=== PATIENT | female | born 1945 ===

== ENCOUNTER 2016-08-17 15:09 | Inpatient (IN) | payer MEDICARE ==
--- NOTE | 2016-08-17 15:35 | ED Physician Chart ---
Chief Complaint/HPI - Patient Information Date Seen:: 08/17/16 Time Seen:: 15:20 Chief Complaint:: hearing voices History of Present Illness:: has been hearing voices for the last few days telling her that the world is coming to an end. Doesn't want to go to sleep because doesn't want to miss the event. Is also hearing a trumpet sound. Historian:: Patient Review:: Nurse's Note Reviewed Review of Systems - Review of Systems General/Constitutional: No fever, No chills Skin: No skin lesions Head: No headache Eyes: No loss of vision ENT: No earache Neck: No neck pain Cardio Vascular: No chest pain Pulmonary: Wheezing GI: No nausea, No vomiting Musculoskeletal: No bone or joint pain Endocrine: No polyuria, No polydipsia Hematopoietic: No bruising, No lymphadenopathy Allergic/Immuno: No urticaria Neurological: No syncope, No focal symptoms Past Medical History - Past Medical History Past Medical History: Arthritis, Other (psychosis; depression; anxiety; bipolar ; chronic pain; DJD) Family History: Heart disease, Diabetes Melitus, HTN Social History: Smoker, Care Facility Surgical History: other Medication: Reviewed Family Medical History - Family Member Father History Unknown: Yes Physical Exam - Physical Examination General/Constitutional: Well-developed, well-nourished, Alert Head: Atraumatic Eyes: Lids, conjuctiva normal, PERRL Skin: Nl inspection, No rash, No skin lesions, No ecchymosis ENMT: External ears, nose nl, TM canals nl, Nasal exam nl, Oropharynx nl, Tonsils nl Other ENMT comments:: edentulous with upper dentures Neck: No nuchal rigidity Respiratory: Nl effort/Exclusion Other Respiratory comments:: diffuse prolonged expirations and expiratory wheezing Cardio Vascular: RRR GI: No tenderness/rebounding/guarding, No organomegaly : No CVA tenderness Extremities: No tenderness or effusion, Full ROM Neuro/Psych: Alert/oriented Misc: Normal back Labs/Radiology/EKG Results - Lab Results Results: Laboratory Results - last 24 hr 08/17/16 08/17/16 08/17/16 15:39 15:39 15:39 WBC 6.7 RBC 5.17 Hgb 15.5 Hct 45.6 H MCV 88.2 MCH 29.9 MCHC Differential 33.9 RDW 12.8 Plt Count 197 MPV 8.0 Neutrophils % 70.2 Lymphocytes % 22.9 Monocytes % 4.4 Eosinophils % 2.4 Basophils % 0.1 Sodium 131 L Potassium 4.0 Chloride 97 L Carbon Dioxide 28.9 Anion Gap 9.1 BUN 12 Creatinine 0.9 Est GFR ( Amer) TNP Est GFR (Non-Af Amer) TNP BUN/Creatinine Ratio 13.3 Glucose 87 Calcium 9.3 Total Bilirubin 0.3 AST 11 L ALT 8 Alkaline Phosphatase 85 Total Protein 6.4 Albumin 3.9 Globulin 2.5 Albumin/Globulin Ratio 1.6 TSH 1.05 - Radiology Results Results: CXR: calcification of aortic arch; no infiltrate; no cardiomegaly - EKG Interpretations Rhythm: NSR [place]: LAD Rate: 63 ED Septic Shock - . Is Septic Shock (SBP<90, OR Lactate>4 mmol\L) present?: No Reassessment (Disposition) - Reassessment Reassessment Condition:: Unchanged - Diagnosis Diagnosis:: COPD; auditory hallucinations - Patient Disposition Admitted to:: [facility] Admitting Medical Physician:: Ari Carter Admitting Psych Physician:: Kelli Osborne
[2016-08-17 15:45] LABS: % BASOPHILS 0.1 % (0.0-2.0); % EOSINOPHILS 2.4 % (0.0-5.0); % LYMPHOCYTES 22.9 % (20.0-50.0); % MONOCYTES 4.4 % (2.0-10.0); % NEUTROPHILS 70.2 % (40.0-80.0); HEMATOCRIT 45.6 % (35.0-45.0); HEMOGLOBIN 15.5 gm/dL (11.7-16.1); MEAN CELL VOLUME 88.2 fl (81-100); MEAN CORPUSCULAR HEMOGLOBIN 29.9 pg (27.0-31.0); MEAN CORPUSCULAR HGB CONC 33.9 pg (28.0-36.0); NEUTROPHILE ABSOLUTE 4.7 Th/cmm (1.8-8.0); PLATELET COUNT 197 Th/cmm (150-400); RED BLOOD COUNT 5.17 Mil/cmm (3.80-5.20); RED CELL DISTRIBUTION WIDTH 12.8 % (11.5-20.0); WHITE BLOOD COUNT 6.7 Th/cmm (4.8-10.8)
--- NOTE | 2016-08-17 16:01 | Diagnostic Imaging Report ---
Portable chest x-ray HISTORY: Shortness of breath, COPD The heart size is generous. No acute focal pulmonary processes. No hilar or mediastinal abnormality is. Electrode wires project over the thoracic spine. IMPRESSION: 1. No acute pulmonary processes
[2016-08-17 16:04] LABS: ALB/GLOB RATIO 1.6 (1.0-1.8); ALKALINE PHOSPHATASE 85 U/L (34-104); ANION GAP 9.1 (7.0-16.0); BILIRUBIN,TOTAL 0.3 mg/dL (0.3-1.0); BUN - UREA NITROGEN 12 mg/dL (7-25); BUN/CREATININE RATIO 13.3; CALCIUM SERUM 9.3 mg/dL (8.6-10.3); CARBON DIOXIDE 28.9 mEq/L (21.0-31.0); CHLORIDE 97 mEq/L (98-107); CREATININE - SERUM 0.9 mg/dL (0.6-1.2); GLUCOSE 87 mg/dL (70-105); SGOT 11 U/L (13-39); SGPT/ALT 8 U/L (7-52); SODIUM SERUM 131 mEq/L (136-145)
[2016-08-17 18:21] LABS: URINE BILIRUBIN NEGATIVE (NEGATIVE); URINE COLOR PALE YELLOW; URINE GLUCOSE (UA) NEGATIVE (NEGATIVE)
[2016-08-17 18:22] LABS: URINE BLOOD TRACE (NEGATIVE); URINE KETONE NEGATIVE (NEGATIVE); URINE PROTEIN NEGATIVE (NEGATIVE); URINE UROBILINOGEN 0.2 E.U./dL (0.2 - 1.0)
[2016-08-17 18:23] LABS: URINE BACTERIA OCCASIONAL /hpf (NONE SEEN); URINE EPITHELIAL CELLS RARE /lpf (FEW); URINE RBC 0-2 /hpf (0-5); URINE WBC 0-2 /hpf (0-5)
[2016-08-17 18:47] VITALS: BP 183/100
[2016-08-17] MEDS ORDERED: MORPHINE 30 MG PO PRN (20:17)
[2016-08-17] MEDS ORDERED: CODEINE PO PRN (20:17)
[2016-08-17] MEDS ORDERED: Hydrocodone/APAP 10 mg/325 mg Tab PO PRN (20:17)
[2016-08-17] MEDS ORDERED: Non-Formulary Item 1 EA (Morphine Sulfate [Morphine Sulfate] 30 MG) PO PRN (20:17)
[2016-08-17] MEDS ORDERED: PROMETHAZINE PO PRN (20:17)
[2016-08-17] MEDS ORDERED: [UNRECOGNIZED DRUG - OTHER] PO PRN (20:17)
[2016-08-17] MEDS ORDERED: PHENYLEPHRINE PO PRN (20:17)
[2016-08-17] MEDS ORDERED: Non-Formulary Item 1 EA (Lactulose [Lactulose] 20 GM) PO SCH (21:00)
[2016-08-17] MEDS ORDERED: ALPRAZOLAM 1 MG PO SCH (21:00)
[2016-08-17] MEDS ORDERED: Non-Formulary Item 1 EA (Trazodone Hcl [Trazodone Hcl] 200 MG) PO SCH (21:00)
[2016-08-17] MEDS ORDERED: Pneumococcal Vaccine 0.5 mL Vial IM ONE (22:13)
[2016-08-17] MEDS ORDERED: Influenza Vaccine 0.5 mL Syr IM ONE (22:13)
[2016-08-18] MEDS: Lactulose 10 Gm/15 mL 30mL UDC PO SCH ×3 (08:57→21:05)
[2016-08-18] MEDS: Pantoprazole 40 mg EC Tab PO SCH (08:58)
[2016-08-18] MEDS: Oxybutynin Chloride 5 mg ER Tab PO SCH (08:59)
[2016-08-18] MEDS ORDERED: DOXYCYCLINE HYCLATE 100 MG PO SCH (09:00)
[2016-08-18] MEDS ORDERED: Non-Formulary Item 1 EA (Atenolol [Atenolol] 50 MG) PO SCH (09:00)
[2016-08-18] MEDS ORDERED: Non-Formulary Item 1 EA (Lisinopril [Lisinopril] 30 MG) PO SCH (09:00)
[2016-08-18] MEDS ORDERED: Non-Formulary Item 1 EA (Omeprazole [Omeprazole] 40 MG) PO SCH (09:00)
[2016-08-18] MEDS ORDERED: ESTRADIOL 0.1 MG VG SCH (09:00)
[2016-08-18] MEDS: Lidocaine 5% Patch TD SCH (09:00)
--- NOTE | 2016-08-18 13:55 | History & Physical ---
IDENTIFYING INFORMATION: The patient is a 71-year-old female. CHIEF COMPLAINT: "I have been depressed." HISTORY OF PRESENT ILLNESS: The patient was referred because of delusions, paranoia, and depression. The patient reports that she has been depressed for the last month. She said she has so many stressors. She has a roommate that she does not trust. She reports that she does not want to harm herself or anybody. She denies any auditory or visual hallucination or paranoia. She reports sleeping ____. PAST PSYCHIATRIC HISTORY: The patient has long history of psychiatric treatment. She has long history of depression. She denies any prior suicide attempt. She has been on Abilify, lorazepam, trazodone and Ativan. MEDICAL HISTORY: Deferred to the medical doctors. ALLERGIES: SHE IS ALLERGIC TO STEROIDS. MEDICATIONS: She is on Effexor 150 mg daily, Abilify 5 mg daily, trazodone 200 mg at bedtime. FAMILY AND SOCIAL HISTORY: The patient reports she is . She has a master degree. 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 She has 2 children, a boy and girl. She said she has good relation with her family. No family psychiatric disorder. She reports she lives with a roommate. MENTAL STATUS EXAMINATION: The patient was appropriately dressed, appropriately groomed. Mood is depressed. Affect is sad. Thoughts are clear. Speech is coherent. She was unsure of the exact date. She denies any auditory or visual hallucination; however, she has been reported to be paranoid and delusional; however, when I talked to her, she was fine. She reports she was diagnosed with bipolar disorder. She reported no current intent to harm herself. She is not sleeping well. Appetite varies and she seems to have average intelligence. Her long and short term memory is intact. Insight and judgment are questionable. IMPRESSION: AXIS I: Bipolar disorder, depressed with delusion. MEDICAL DIAGNOSES: Deferred to the medical doctor. INITIAL TREATMENT PLAN: The patient will be continued on all her medication. I will be initiating Neurontin. She will continue her medication as needed and later we may have to try and see if we could get her off Xanax easily and maybe that will be better done as an outpatient, ____ long time. ESTIMATED LENGTH OF STAY: 3-7 days. DISCHARGE CRITERIA: Decreasing depression, delusion, after discharge outpatient. JOB# [id number]
[2016-08-18] MEDS: Albuterol Nebulizer 2.5mg/3mL HHN SCH ×2 (14:35→19:42)
[2016-08-18] MEDS: Ipratropium Neb 0.5 mg/2.5 mL UD HHN SCH ×2 (14:36→19:42)
--- NOTE | 2016-08-18 18:58 | History & Physical ---
PATIENT IDENTIFICATION: A 71-year-old female. REQUESTING PHYSICIAN: Dr. Osborne. HISTORY SOURCE: Talking to the patient and reviewing the chart. CHIEF COMPLAINT: "I'm okay." HISTORY OF PRESENT ILLNESS: This is a 71-year-old female with history of COPD, hypertension, DJD, chronic pain syndrome, brought in to the hospital at [facility] for evaluation and management of her psychiatric illness. Upon further questioning, the patient said that she is feeling very weak and she prefers to get her physical therapy. According to the patient, the patient needs a physical therapy. PAST MEDICAL HISTORY: Remarkable for: 1. COPD. 2. Hypertension. 3. DJD. 4. Chronic pain syndrome. MEDICATIONS AT HOME: The patient is taking multiple medications, which have been reviewed and appropriately reconciled. ALLERGIES: The patient is not allergic to medication. SOCIAL HISTORY: The patient lives in a [address] [place] [facility]. She has a history of smoking cigarette. No alcohol or drug use. FAMILY MEDICAL HISTORY: Remarkable for diabetes, hypertension, kidney disease, and liver disease as well. REVIEW OF SYSTEMS: The patient currently denies any headache, blurred vision, double vision, dysphagia, odynophagia, runny nose, stuffy nose, fever, chills, cough, chest pain, shortness of breath, palpitations, dizziness, nausea, vomiting, diarrhea, dysuria, hematuria, hematochezia, or melena. No history of any seizure or syncopal episode. No history of any weight loss or weight gain. PHYSICAL EXAMINATION: GENERAL: The patient is alert, awake, and oriented, lying in the bed without any acute distress. VITAL SIGNS: Temperature 97.8, pulse is , respiratory rate is 20, and blood pressure 148/90. SKIN: Warm to touch. HEENT: Normocephalic and atraumatic. Extraocular muscles are intact. Tongue was pink and coated. Upper and lower dentures noted. No oral lesions. NECK: Supple. No JVD. No hepatojugular reflux. No lymphadenopathy, thyromegaly, or carotid bruit. HEART: Both heart sounds are regular. No S3, no S4, no murmur. CHEST/LUNGS: Equal in expansion with expiratory wheezing. ABDOMEN: Soft. No guarding, no rigidity. Liver and spleen palpable. No palpable mass. EXTREMITIES: No edema. Diffuse osteoarthritic changes noted. NEUROLOGIC: Alert and awake, follows commands. Decreased lyons throughout the upper and lower extremity noted. AVAILABLE DIAGNOSTIC DATA: Performed in the Emergency Room has been reviewed and reconciled. CLINICAL IMPRESSION: 1. Chronic obstructive pulmonary disease. 2. Hypertension. 3. Degenerative joint disease. 4. Chronic pain syndrome. 5. Obesity. 6. Psychotic disorder. 7. Gastroesophageal reflux disease. 8. Urinary incontinence. 9. Debility. PLAN: 1. Psychotic evaluation and management deferred to psychiatrist. 2. Continue to provide nebulizer treatment, antihypertensive medications along with pain management with methadone and [place] for now. 3. The patient to have physical therapy and occupational therapy. Care plan has been reviewed and discussed with the staff. JOB# [id number]
[2016-08-18] MEDS: Budesonide 0.5 Mg/2 mL Ud HHN SCH (19:43)
[2016-08-19] MEDS: Albuterol Nebulizer 2.5mg/3mL HHN SCH ×4 (07:16→19:45)
[2016-08-19] MEDS: Ipratropium Neb 0.5 mg/2.5 mL UD HHN SCH ×4 (07:16→19:45)
[2016-08-19] MEDS: Budesonide 0.5 Mg/2 mL Ud HHN SCH ×2 (07:27→19:45)
[2016-08-19] MEDS: Lactulose 10 Gm/15 mL 30mL UDC PO SCH ×3 (08:38→21:09)
[2016-08-19] MEDS: Oxybutynin Chloride 5 mg ER Tab PO SCH (08:42)
[2016-08-19] MEDS: Pantoprazole 40 mg EC Tab PO SCH (08:42)
[2016-08-19] MEDS: Lidocaine 5% Patch TD SCH (08:46)
--- NOTE | 2016-08-20 00:57 | Progress Notes ---
Case discussed with staff of the patient. The patient is alert, able to express herself. Continues to be depressed, overwhelmed. She has been depressed for a month. She has so many stressors. She lives with somebody she does not trust. She continues to be easily overwhelmed. There is a long history of psychiatric treatment and depression. She has been compliant with the medication with no side effects, no sedation, no nausea, no extrapyramidal symptoms and she was restarted on her medications and I will make adjustment as we go along because I am not sure if she is going to comply with medication completely to make sure she does not have side effects and lab work showed serum sodium to be low and the rest within normal range. Urinalysis within normal range. CBC with high hemoglobin and high MCV and the repeated sodium level was within normal range. She has high hemoglobin. So far, no side effects with the medication. No nausea, no extrapyramidal symptoms. We will continue to work with the patient in group therapy, milieu therapy, adjust the medication as needed. JOB# [id number]
[2016-08-20] MEDS: Albuterol Nebulizer 2.5mg/3mL HHN SCH ×4 (07:00→19:46)
[2016-08-20] MEDS: Ipratropium Neb 0.5 mg/2.5 mL UD HHN SCH ×4 (07:00→19:46)
[2016-08-20] MEDS: Budesonide 0.5 Mg/2 mL Ud HHN SCH ×2 (07:25→19:47)
[2016-08-20] MEDS: Lactulose 10 Gm/15 mL 30mL UDC PO SCH ×3 (08:33→21:07)
[2016-08-20] MEDS: Oxybutynin Chloride 5 mg ER Tab PO SCH (08:35)
[2016-08-20] MEDS: Pantoprazole 40 mg EC Tab PO SCH (08:37)
[2016-08-20] MEDS: Lidocaine 5% Patch TD SCH (08:38)
[2016-08-20] MEDS: Albuterol Nebulizer 2.5mg/3mL HHN PRN (16:20)
--- NOTE | 2016-08-20 21:04 | Progress Notes ---
Case was discussed with staff of the patient, reviewed records. The patient has multiple somatic complaints. Continues to be depressed, easily overwhelmed. She continues to deal with many stressors. She continues to be somewhat paranoid towards her roommate with a long history of psychiatric treatment of depression. She has been sleeping better, eating better. She is compliant with the medication with no side effects, no sedation, no nausea, and no extrapyramidal symptoms, and she is on Abilify 5 mg daily and we will continue to work with the patient in group therapy, milieu therapy, and adjust the medication as needed. JOB# [id number]
[2016-08-21] MEDS: Budesonide 0.5 Mg/2 mL Ud HHN SCH ×2 (06:46→18:59)
[2016-08-21] MEDS: Ipratropium Neb 0.5 mg/2.5 mL UD HHN SCH ×4 (06:46→19:00)
[2016-08-21] MEDS: Albuterol Nebulizer 2.5mg/3mL HHN SCH ×4 (06:46→19:00)
[2016-08-21] MEDS: Oxybutynin Chloride 5 mg ER Tab PO SCH (09:12)
[2016-08-21] MEDS: Lidocaine 5% Patch TD SCH (09:13)
[2016-08-21] MEDS: Lactulose 10 Gm/15 mL 30mL UDC PO SCH ×3 (09:13→20:58)
[2016-08-21] MEDS: Pantoprazole 40 mg EC Tab PO SCH (09:13)
--- NOTE | 2016-08-22 00:32 | Progress Notes ---
Case discussed with staff of the patient, reviewed records. The patient is delusional, depressed, continues to have poor insight. Unable to make safe plan for her self-care. Continues to need redirection. Continues to be very depressed. Continues to have poor insight. She is having some ____ to deal with, and so far, she is compliant with the medication with no side effects. I will be increasing her Abilify to 10 mg a day and so far, no side effects, no sedation, no nausea, no extrapyramidal symptoms, and we will continue to work with the patient in group therapy, milieu therapy, adjust the medication as needed. JOB# [id number]
[2016-08-22] MEDS: Albuterol Nebulizer 2.5mg/3mL HHN SCH ×5 (04:05→19:49)
[2016-08-22] MEDS: Lactulose 10 Gm/15 mL 30mL UDC PO SCH ×3 (08:39→20:56)
[2016-08-22] MEDS: Pantoprazole 40 mg EC Tab PO SCH (08:41)
[2016-08-22] MEDS: Oxybutynin Chloride 5 mg ER Tab PO SCH (08:42)
[2016-08-22] MEDS: Lidocaine 5% Patch TD SCH (08:44)
[2016-08-22] MEDS: Ipratropium Neb 0.5 mg/2.5 mL UD HHN SCH ×5 (08:54→19:49)
[2016-08-22] MEDS: Budesonide 0.5 Mg/2 mL Ud HHN SCH ×2 (08:54→19:50)
--- NOTE | 2016-08-22 15:38 | Internal Medicine Prog Note ---
Internal Medicine Subjective - Subjective Service Date: 08/22/16 Patient seen and examined:: with staff Patient is:: awake Per staff patient is:: no adverse event Internal Medicine Objective - Results Result Diagrams: 08/17/16 15:39 08/17/16 15:39 Recent Labs: Laboratory Last Values WBC 6.7 Th/cmm (4.8-10.8) 08/17/16 15:39 RBC 5.17 Mil/cmm (3.80-5.20) 08/17/16 15:39 Hgb 15.5 gm/dL (11.7-16.1) 08/17/16 15:39 Hct 45.6 % (35.0-45.0) H 08/17/16 15:39 MCV 88.2 fl (81-100) 08/17/16 15:39 MCH 29.9 pg (27.0-31.0) 08/17/16 15:39 MCHC Differential 33.9 pg (28.0-36.0) 08/17/16 15:39 RDW 12.8 % (11.5-20.0) 08/17/16 15:39 Plt Count 197 Th/cmm (150-400) 08/17/16 15:39 MPV 8.0 fl 08/17/16 15:39 Neutrophils % 70.2 % (40.0-80.0) 08/17/16 15:39 Lymphocytes % 22.9 % (20.0-50.0) 08/17/16 15:39 Monocytes % 4.4 % (2.0-10.0) 08/17/16 15:39 Eosinophils % 2.4 % (0.0-5.0) 08/17/16 15:39 Basophils % 0.1 % (0.0-2.0) 08/17/16 15:39 Sodium 131 mEq/L (136-145) L 08/17/16 15:39 Potassium 4.0 mEq/L (3.5-5.1) 08/17/16 15:39 Chloride 97 mEq/L (98-107) L 08/17/16 15:39 Carbon Dioxide 28.9 mEq/L (21.0-31.0) 08/17/16 15:39 Anion Gap 9.1 (7.0-16.0) 08/17/16 15:39 BUN 12 mg/dL (7-25) 08/17/16 15:39 Creatinine 0.9 mg/dL (0.6-1.2) 08/17/16 15:39 Est GFR ( Amer) TNP 08/17/16 15:39 Est GFR (Non-Af Amer) TNP 08/17/16 15:39 BUN/Creatinine Ratio 13.3 08/17/16 15:39 Glucose 87 mg/dL (70-105) 08/17/16 15:39 Calcium 9.3 mg/dL (8.6-10.3) 08/17/16 15:39 Total Bilirubin 0.3 mg/dL (0.3-1.0) 08/17/16 15:39 AST 11 U/L (13-39) L 08/17/16 15:39 ALT 8 U/L (7-52) 08/17/16 15:39 Alkaline Phosphatase 85 U/L (34-104) 08/17/16 15:39 Total Protein 6.4 gm/dL (6.0-8.3) 08/17/16 15:39 Albumin 3.9 gm/dL (3.7-5.3) 08/17/16 15:39 Globulin 2.5 gm/dL 08/17/16 15:39 Albumin/Globulin Ratio 1.6 (1.0-1.8) 08/17/16 15:39 TSH 1.05 uIU/ml (0.34-5.60) 08/17/16 15:39 Urine Source CLEAN C 08/17/16 16:15 Urine Color PALE YELLOW 08/17/16 16:15 Urine Clarity CLEAR (CLEAR) 08/17/16 16:15 Urine pH 7.0 08/17/16 16:15 Ur Specific [place] 1.010 (1.005-1.030) 08/17/16 16:15 Urine Protein NEGATIVE mg/dL (NEGATIVE) 08/17/16 16:15 Urine Glucose (UA) NEGATIVE mg/dL (NEGATIVE) 08/17/16 16:15 Urine Ketones NEGATIVE mg/dL (NEGATIVE) 08/17/16 16:15 Urine Blood TRACE (NEGATIVE) 08/17/16 16:15 Urine Nitrate NEGATIVE (NEGATIVE) 08/17/16 16:15 Urine Bilirubin NEGATIVE (NEGATIVE) 08/17/16 16:15 Urine Urobilinogen 0.2 E.U./dL (0.2 - 1.0) 08/17/16 16:15 Ur Leukocyte Esterase NEGATIVE (NEGATIVE) 08/17/16 16:15 Urine RBC 0-2 /hpf (0-5) 08/17/16 16:15 Urine WBC 0-2 /hpf (0-5) 08/17/16 16:15 Ur Epithelial Cells RARE /lpf (FEW) 08/17/16 16:15 Urine Bacteria OCCASIONAL /hpf (NONE SEEN) 08/17/16 16:15 RPR NONREACTIVE (NONREACTIVE) 08/17/16 15:39 - Physical Exam Vitals and I&O: Vital Signs Temp 97.8 F 08/22/16 06:12 Pulse 102 08/22/16 08:55 Resp 20 08/22/16 14:47 BP 109/78 08/22/16 08:36 Pulse Ox 94 08/22/16 08:55 Intake & Output 08/21/16 08/22/16 08/22/16 18:59 06:59 18:59 Intake Total 2880 Balance 2880 Intake: Oral 2880 Other: # Voids 3 # Bowel Movements 0 Active Medications: Current Medications Acetaminophen (Tylenol) 650 mg PO Q4HR PRN PRN Reason: Pain (Mild) Stop: 10/17/16 02:25 Last Admin: 08/21/16 01:03 Dose: 650 mg Albuterol Sulfate (Albuterol 2.5mg/3ml Neb Ud) 2.5 mg HHN Q4H PRN PRN Reason: Shortness of Breath Stop: 10/17/16 08:04 Last Admin: 08/20/16 16:20 Dose: 2.5 mg Albuterol Sulfate (Albuterol 2.5mg/3ml Neb Ud) 2.5 mg HHN QIDRT [facility] Stop: 10/17/16 10:59 Last Admin: 08/22/16 14:57 Dose: 2.5 mg Alprazolam (Xanax) 1 mg PO TID [facility] Stop: 10/17/16 08:59 Last Admin: 08/22/16 08:38 Dose: Not Given Aripiprazole (Abilify) 10 mg PO DAILY [facility] PRN Reason: Protocol Stop: 10/20/16 11:45 Last Admin: 08/22/16 08:37 Dose: 10 mg Atenolol (Tenormin) 50 mg PO BID [facility] Stop: 10/17/16 08:59 Last Admin: 08/22/16 08:33 Dose: Not Given Budesonide (Pulmicort) 0.5 mg HHN BIDRT [facility] Stop: 10/17/16 18:59 Last Admin: 08/22/16 08:54 Dose: 0.5 mg Celecoxib (Celebrex) 100 mg PO DAILY JILL Stop: 10/17/16 17:59 Last Admin: 08/22/16 08:38 Dose: Not Given Clopidogrel Bisulfate (Plavix) 75 mg PO DAILY [facility] Stop: 10/17/16 08:59 Last Admin: 08/22/16 08:36 Dose: 75 mg Furosemide (Lasix) 40 mg PO DAILY [facility] Stop: 10/17/16 08:59 Last Admin: 08/22/16 08:36 Dose: Not Given Ipratropium [place] (Atrovent Neb 0.5mg/2.5ml) 0.5 mg HHN QIDRT [facility] Stop: 10/17/16 10:59 Last Admin: 08/22/16 14:57 Dose: 0.5 mg Lactulose (Cephulac) 20 gm PO TID [facility] Stop: 10/17/16 08:59 Last Admin: 08/22/16 08:39 Dose: Not Given Lidocaine (Lidoderm 5% Patch) 1 patch TD DAILY [facility] Stop: 10/17/16 08:59 Last Admin: 08/22/16 08:44 Dose: 1 patch Lorazepam (Ativan) 1 mg PO Q6H PRN; Protocol PRN Reason: Anxiety Stop: 10/16/16 20:13 Last Admin: 08/21/16 17:04 Dose: 1 mg Methadone HCl (Methadone) 10 mg PO TID [facility] Stop: 10/16/16 20:59 Last Admin: 08/22/16 08:41 Dose: Not Given Oxybutynin Chloride (Ditropan Xl) 10 mg PO DAILY [facility] Stop: 10/17/16 08:59 Last Admin: 08/22/16 08:42 Dose: Not Given Pantoprazole Sodium (Protonix) 40 mg PO DAILY [facility] Stop: 10/17/16 08:59 Last Admin: 08/22/16 08:41 Dose: Not Given Senna (Senna) 17.2 mg PO BID [facility] Stop: 10/17/16 08:59 Last Admin: 08/22/16 08:41 Dose: Not Given Tizanidine HCl (Zanaflex) 4 mg PO TID [facility] Stop: 10/16/16 20:59 Last Admin: 08/22/16 08:43 Dose: 4 mg Trazodone HCl (Desyrel) 200 mg PO HS [facility] Stop: 10/17/16 20:59 Last Admin: 08/21/16 20:59 Dose: Not Given Venlafaxine HCl (Effexor Xr) 225 mg PO DAILY [facility] Stop: 10/21/16 12:18 General: alert HEENT: NC/AT, PERRLA Neck: Supple Lungs: CTAB Cardiovascular: RRR, Normal S1, Normal S2, without murmur Abdomen: soft non-tender Extremities: clear Neurological: no change Internal Medicine Assmt/Plan - Assessment Assessment: copd htn djd chronic pain syndrome obesity psychotic disorder gerd urinary incontinence debility - Plan Plan: monitor for any respiratory distress supplemental o2 cpm
--- NOTE | 2016-08-22 22:08 | Progress Notes ---
Case was discussed with staff of the patient, reviewed records. The patient reported that she wants to see a therapist and I asked the staff to get the psychologist come here to see her. The patient continues to be depressed and overwhelmed. She also expressed that she wants to go to a rehab facility for 2 weeks. She continues to be very depressed, galvan, irritable, suicidal, and continues to be unable to make safe plan for self-care, wanting helped, but she is motivated to get better. No side effects from the medication, no sedation, and no extrapyramidal symptoms. We will continue to work with the patient in group therapy, milieu therapy, and adjust medication as needed. [facility]# [id number]
[2016-08-23] MEDS: Albuterol Nebulizer 2.5mg/3mL HHN PRN (05:47)
[2016-08-23] MEDS: Budesonide 0.5 Mg/2 mL Ud HHN SCH (07:03)
[2016-08-23] MEDS: Ipratropium Neb 0.5 mg/2.5 mL UD HHN SCH ×4 (07:03→19:22)
[2016-08-23] MEDS: Albuterol Nebulizer 2.5mg/3mL HHN SCH ×4 (07:04→19:22)
[2016-08-23] MEDS: Pantoprazole 40 mg EC Tab PO SCH (08:26)
[2016-08-23] MEDS: Oxybutynin Chloride 5 mg ER Tab PO SCH (08:26)
[2016-08-23] MEDS: Lactulose 10 Gm/15 mL 30mL UDC PO SCH ×3 (08:29→20:36)
[2016-08-23] MEDS: Lidocaine 5% Patch TD SCH ×2 (08:35→08:54)
--- NOTE | 2016-08-23 16:15 | Internal Medicine Prog Note ---
Internal Medicine Subjective - Subjective Service Date: 08/23/16 Patient seen and examined:: with staff, without staff Patient is:: awake Per staff patient is:: no adverse event Internal Medicine Objective - Results Result Diagrams: 08/17/16 15:39 08/17/16 15:39 Recent Labs: Laboratory Last Values WBC 6.7 Th/cmm (4.8-10.8) 08/17/16 15:39 RBC 5.17 Mil/cmm (3.80-5.20) 08/17/16 15:39 Hgb 15.5 gm/dL (11.7-16.1) 08/17/16 15:39 Hct 45.6 % (35.0-45.0) H 08/17/16 15:39 MCV 88.2 fl (81-100) 08/17/16 15:39 MCH 29.9 pg (27.0-31.0) 08/17/16 15:39 MCHC Differential 33.9 pg (28.0-36.0) 08/17/16 15:39 RDW 12.8 % (11.5-20.0) 08/17/16 15:39 Plt Count 197 Th/cmm (150-400) 08/17/16 15:39 MPV 8.0 fl 08/17/16 15:39 Neutrophils % 70.2 % (40.0-80.0) 08/17/16 15:39 Lymphocytes % 22.9 % (20.0-50.0) 08/17/16 15:39 Monocytes % 4.4 % (2.0-10.0) 08/17/16 15:39 Eosinophils % 2.4 % (0.0-5.0) 08/17/16 15:39 Basophils % 0.1 % (0.0-2.0) 08/17/16 15:39 Sodium 131 mEq/L (136-145) L 08/17/16 15:39 Potassium 4.0 mEq/L (3.5-5.1) 08/17/16 15:39 Chloride 97 mEq/L (98-107) L 08/17/16 15:39 Carbon Dioxide 28.9 mEq/L (21.0-31.0) 08/17/16 15:39 Anion Gap 9.1 (7.0-16.0) 08/17/16 15:39 BUN 12 mg/dL (7-25) 08/17/16 15:39 Creatinine 0.9 mg/dL (0.6-1.2) 08/17/16 15:39 Est GFR ( Amer) TNP 08/17/16 15:39 Est GFR (Non-Af Amer) TNP 08/17/16 15:39 BUN/Creatinine Ratio 13.3 08/17/16 15:39 Glucose 87 mg/dL (70-105) 08/17/16 15:39 Calcium 9.3 mg/dL (8.6-10.3) 08/17/16 15:39 Total Bilirubin 0.3 mg/dL (0.3-1.0) 08/17/16 15:39 AST 11 U/L (13-39) L 08/17/16 15:39 ALT 8 U/L (7-52) 08/17/16 15:39 Alkaline Phosphatase 85 U/L (34-104) 08/17/16 15:39 Total Protein 6.4 gm/dL (6.0-8.3) 08/17/16 15:39 Albumin 3.9 gm/dL (3.7-5.3) 08/17/16 15:39 Globulin 2.5 gm/dL 08/17/16 15:39 Albumin/Globulin Ratio 1.6 (1.0-1.8) 08/17/16 15:39 TSH 1.05 uIU/ml (0.34-5.60) 08/17/16 15:39 Urine Source CLEAN C 08/17/16 16:15 Urine Color PALE YELLOW 08/17/16 16:15 Urine Clarity CLEAR (CLEAR) 08/17/16 16:15 Urine pH 7.0 08/17/16 16:15 Ur Specific [place] 1.010 (1.005-1.030) 08/17/16 16:15 Urine Protein NEGATIVE mg/dL (NEGATIVE) 08/17/16 16:15 Urine Glucose (UA) NEGATIVE mg/dL (NEGATIVE) 08/17/16 16:15 Urine Ketones NEGATIVE mg/dL (NEGATIVE) 08/17/16 16:15 Urine Blood TRACE (NEGATIVE) 08/17/16 16:15 Urine Nitrate NEGATIVE (NEGATIVE) 08/17/16 16:15 Urine Bilirubin NEGATIVE (NEGATIVE) 08/17/16 16:15 Urine Urobilinogen 0.2 E.U./dL (0.2 - 1.0) 08/17/16 16:15 Ur Leukocyte Esterase NEGATIVE (NEGATIVE) 08/17/16 16:15 Urine RBC 0-2 /hpf (0-5) 08/17/16 16:15 Urine WBC 0-2 /hpf (0-5) 08/17/16 16:15 Ur Epithelial Cells RARE /lpf (FEW) 08/17/16 16:15 Urine Bacteria OCCASIONAL /hpf (NONE SEEN) 08/17/16 16:15 RPR NONREACTIVE (NONREACTIVE) 08/17/16 15:39 - Physical Exam Vitals and I&O: Vital Signs Temp 97.8 F 08/23/16 14:00 Pulse 83 08/23/16 15:54 Resp 20 08/23/16 15:54 BP 131/84 08/23/16 14:00 Pulse Ox 94 08/23/16 15:54 Intake & Output 08/22/16 08/23/16 08/23/16 18:59 06:59 18:59 Intake Total 800 360 Balance 800 360 Intake: Oral 800 360 Other: # Voids 3 3 # Bowel Movements 1 0 Active Medications: Current Medications Acetaminophen (Tylenol) 650 mg PO Q4HR PRN PRN Reason: Pain (Mild) Stop: 10/17/16 02:25 Last Admin: 08/21/16 01:03 Dose: 650 mg Albuterol Sulfate (Albuterol 2.5mg/3ml Neb Ud) 2.5 mg HHN Q4H PRN PRN Reason: Shortness of Breath Stop: 10/17/16 08:04 Last Admin: 08/23/16 05:47 Dose: 2.5 mg Albuterol Sulfate (Albuterol 2.5mg/3ml Neb Ud) 2.5 mg HHN QIDRT [facility] Stop: 10/17/16 10:59 Last Admin: 08/23/16 15:54 Dose: 2.5 mg Alprazolam (Xanax) 1 mg PO TID [facility] Stop: 10/17/16 08:59 Last Admin: 08/23/16 14:28 Dose: 0.5 mg Aripiprazole (Abilify) 10 mg PO DAILY [facility] PRN Reason: Protocol Stop: 10/20/16 11:45 Last Admin: 08/23/16 08:26 Dose: 10 mg Atenolol (Tenormin) 50 mg PO BID [facility] Stop: 10/17/16 08:59 Last Admin: 08/23/16 08:27 Dose: 50 mg Budesonide (Pulmicort) 0.5 mg HHN BIDRT [facility] Stop: 10/17/16 18:59 Last Admin: 08/23/16 07:03 Dose: 0.5 mg Celecoxib (Celebrex) 100 mg PO DAILY [facility] Stop: 10/17/16 17:59 Last Admin: 08/23/16 08:25 Dose: 100 mg Clopidogrel Bisulfate (Plavix) 75 mg PO DAILY [facility] Stop: 10/17/16 08:59 Last Admin: 08/23/16 08:26 Dose: 75 mg Furosemide (Lasix) 40 mg PO DAILY [facility] Stop: 10/17/16 08:59 Last Admin: 08/23/16 08:28 Dose: 40 mg Ipratropium [place] (Atrovent Neb 0.5mg/2.5ml) 0.5 mg HHN QIDRT [facility] Stop: 10/17/16 10:59 Last Admin: 08/23/16 15:54 Dose: 0.5 mg Lactulose (Cephulac) 20 gm PO TID [facility] Stop: 10/17/16 08:59 Last Admin: 08/23/16 14:29 Dose: Not Given Lidocaine (Lidoderm 5% Patch) 1 patch TD DAILY [facility] Stop: 10/17/16 08:59 Last Admin: 08/23/16 08:54 Dose: 1 patch Lorazepam (Ativan) 1 mg PO Q6H PRN; Protocol PRN Reason: Anxiety Stop: 10/16/16 20:13 Last Admin: 08/21/16 17:04 Dose: 1 mg Methadone HCl (Methadone) 10 mg PO TID [facility] Stop: 10/16/16 20:59 Last Admin: 08/23/16 14:28 Dose: 10 mg Oxybutynin Chloride (Ditropan Xl) 10 mg PO DAILY [facility] Stop: 10/17/16 08:59 Last Admin: 08/23/16 08:26 Dose: 10 mg Pantoprazole Sodium (Protonix) 40 mg PO DAILY [facility] Stop: 10/17/16 08:59 Last Admin: 08/23/16 08:26 Dose: 40 mg Senna (Senna) 17.2 mg PO BID [facility] Stop: 10/17/16 08:59 Last Admin: 08/23/16 08:25 Dose: Not Given Tizanidine HCl (Zanaflex) 4 mg PO TID [facility] Stop: 10/16/16 20:59 Last Admin: 08/23/16 14:28 Dose: 4 mg Trazodone HCl (Desyrel) 200 mg PO HS [facility] Stop: 10/17/16 20:59 Last Admin: 08/22/16 20:55 Dose: 200 mg Venlafaxine HCl (Effexor Xr) 225 mg PO DAILY [facility] Stop: 10/21/16 12:18 Last Admin: 08/23/16 08:24 Dose: 225 mg General: alert HEENT: NC/AT, PERRLA Neck: Supple Lungs: CTAB Cardiovascular: RRR, Normal S1, Normal S2, without murmur Abdomen: soft non-tender Extremities: clear Internal Medicine Assmt/Plan - Assessment Assessment: copd htn djd chronic pain syndrome obesity psychotic disorder gerd urinary incontinence debility - Plan Plan: monitor for any respiratory distress supplemental o2 cpm
--- NOTE | 2016-08-23 21:05 | Progress Notes ---
Case discussed with staff of the patient, reviewed records. The patient reported that she likes increasing the Effexor. She had no side effects to it. She also reports that she has to go back to her apartment. She lives in an apartment that she likes. ____ to a nurse who said that she was in an assisted living. They were helping her to take care of herself. The patient's Abilify also was increased to 10 mg a day with no side effects, no sedation and no nausea. She has been compliant with the medication with no side effects. She continues to be depressed and overwhelmed. She thinks the medication may need a longer time to work and we will continue to work with the patient in group therapy, milieu therapy and adjust medications. JOB# [id number]
--- NOTE | 2016-08-23 22:46 | Consultation ---
REQUESTING PHYSICIAN: Dr. Kelli Osborne M.D. CONSULTING PSYCHOLOGIST: Nato Monaco, Ph.D. TYPE OF CONSULTATION: Psychological assessment and evaluation. HISTORY OF PRESENT ILLNESS: The following is according to record review, as well as by patient's self report and case discussion with the staff on the Geropsych Unit. According to record reviewed, the patient was referred here from home due to delusions and paranoid ideation as well as some depression. The patient reports that she has been depressed for about a month and that she is having difficulty with a roommate that she has living at home. The patient also states that she has financial problems as well. The patient denied any suicidal ideation, plan or intention. The patient states that she feels that she needs to have her medications managed and adjusted, specifically with titrating or tapering off of methadone. 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 PAST MEDICAL HISTORY: Please see history and physical. PAST PSYCHIATRIC HISTORY: The patient has a long history of psychiatric treatment as well as treatment by other psychologists. The patient states that she has a history of depression and bipolar disorder. She denied any suicidal ideation, plan or intention or any past suicide attempt. SUBSTANCE ABUSE/USE HISTORY: The patient states that she was addicted to opioid analgesics for many years. She states the onset was after an injury and being on pain management for many years. The patient denied any history of alcohol or tobacco use or illicit drug use. CURRENT MEDICATIONS: Effexor 150 mg daily, Abilify 5 mg daily, trazodone 200 mg at bedtime. The patient has been on Abilify before according to record review. SOCIAL HISTORY: The patient states she is and has 2 children. She states she has 1 son who lives in [place] and 1 daughter who lives in [place]. The patient states that her daughter is involved in her care, but due to her work is unable to be involved to any greater degree. The patient stated she did not want the staff here to involve her in any decisions as of yet. 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 She states she has good relationship with her children. The patient stated that she currently has a roommate and lives at home. She states she has difficulty with this roommate and this centers around finances. The patient states that she is looking for placement in a chcf facility. According to discussion with the Hydrocrane [employer] Department and director of casework, the patient has been interviewed by the staff at [facility] and anticipates possible placement there. The patient states that she is a devout [employer]. MENTAL STATUS EXAMINATION: The patient appears to be her stated age. The patient's attitude is open and cooperative. Eye contact is good. Speech is hyperverbal and somewhat pressured. Mood seems to be hypomanic. Affect is expansive and animated. Thought process shows to be cognitively redirectable, but tangential at times. Thought process is goal directed and logical. The patient denied any suicidal ideation, plan or intention. She denies any hallucinations or delusions. However, the patient is exhibiting some signs of paranoid ideation with respect to the conflicted relationship with her roommate and also her finances. There had been conflicting stories and anecdotal information by the patient regarding her current circumstances. The patient's behavior is proactive with her care and treatment and she is compliant with medications. Impulse control is adequate. Concentration is fair. The patient was able to perform serial 3 subtractions but needed to be redirected. The patient was able to repeat 3 items given to her. The first time she was able to recall 2/3 items after several minutes and the third item with 1 hint. Memory is intact for immediate and short term dimensions long-term dimension, prison memory needs further evaluation. The patient was able to give her correct age and date of ; however, the patient was unable to give accurate information regarding milestones or any information about her work and educational history beyond superficial responses. Sensorium is alert and oriented to person, place, but not date and time. Abstract reasoning is fair to poor. The patient is distractible, but redirectable cognitively. The patient was able to logically interpret 1 of the 3 proverbs, the other 2 superficially. Insight is fair to poor. Judgment is fair to poor. DIAGNOSTIC IMPRESSION: AXIS I: History of bipolar disorder, depressed with psychotic features. AXIS II: Deferred. AXIS III: Please see history and physical. PLAN: The patient is continued on all her medication. The patient is requesting the protocol for withdrawal from methadone. This is Deferred to the primary care physician and to the patient's psychiatrist, Dr. Osborne. The patient is seeking placement at a chcf facility with respect to diminished financial capacity for independence. The patient's daughter should be contacted. Social service is aware of this and the director of casework is assisting in the discharge and transition to [facility]. At this time, we are waiting for either a bed to open or facility to agree to placement. This telegraphic typewriter repairer will provide cognitive behavioral therapy with respect to decreasing the patient's depression. We will provide reality orientation, reality integration for the patient's hypomanic mood and to reduce any possible delusions the patient may be experiencing. We will provide coping strategies for phase of life issues. We will continue to provide supportive therapy for chronic long-term mental illness and also include adjustment to the patient's upcoming placement. The patient will be followed by this telegraphic typewriter repairer at her placement. Thank you, Dr. Osborne for this consult and the opportunity to participate with you in your patient's care. JOB# [id number] [id number]
[2016-08-24] MEDS: Ipratropium Neb 0.5 mg/2.5 mL UD HHN SCH ×4 (07:02→19:42)
[2016-08-24] MEDS: Albuterol Nebulizer 2.5mg/3mL HHN SCH ×4 (07:02→19:41)
[2016-08-24] MEDS: Budesonide 0.5 Mg/2 mL Ud HHN SCH ×2 (07:14→19:40)
[2016-08-24] MEDS: Oxybutynin Chloride 5 mg ER Tab PO SCH (08:35)
[2016-08-24] MEDS: Pantoprazole 40 mg EC Tab PO SCH (08:38)
[2016-08-24] MEDS: Lidocaine 5% Patch TD SCH (08:41)
[2016-08-24] MEDS: Lactulose 10 Gm/15 mL 30mL UDC PO SCH ×3 (08:53→21:05)
--- NOTE | 2016-08-24 15:19 | Internal Medicine Prog Note ---
Internal Medicine Subjective - Subjective Service Date: 08/24/16 Patient seen and examined:: with staff Patient is:: awake Per staff patient is:: no adverse event Internal Medicine Objective - Results Result Diagrams: 08/17/16 15:39 08/17/16 15:39 Recent Labs: Laboratory Last Values WBC 6.7 Th/cmm (4.8-10.8) 08/17/16 15:39 RBC 5.17 Mil/cmm (3.80-5.20) 08/17/16 15:39 Hgb 15.5 gm/dL (11.7-16.1) 08/17/16 15:39 Hct 45.6 % (35.0-45.0) H 08/17/16 15:39 MCV 88.2 fl (81-100) 08/17/16 15:39 MCH 29.9 pg (27.0-31.0) 08/17/16 15:39 MCHC Differential 33.9 pg (28.0-36.0) 08/17/16 15:39 RDW 12.8 % (11.5-20.0) 08/17/16 15:39 Plt Count 197 Th/cmm (150-400) 08/17/16 15:39 MPV 8.0 fl 08/17/16 15:39 Neutrophils % 70.2 % (40.0-80.0) 08/17/16 15:39 Lymphocytes % 22.9 % (20.0-50.0) 08/17/16 15:39 Monocytes % 4.4 % (2.0-10.0) 08/17/16 15:39 Eosinophils % 2.4 % (0.0-5.0) 08/17/16 15:39 Basophils % 0.1 % (0.0-2.0) 08/17/16 15:39 Sodium 131 mEq/L (136-145) L 08/17/16 15:39 Potassium 4.0 mEq/L (3.5-5.1) 08/17/16 15:39 Chloride 97 mEq/L (98-107) L 08/17/16 15:39 Carbon Dioxide 28.9 mEq/L (21.0-31.0) 08/17/16 15:39 Anion Gap 9.1 (7.0-16.0) 08/17/16 15:39 BUN 12 mg/dL (7-25) 08/17/16 15:39 Creatinine 0.9 mg/dL (0.6-1.2) 08/17/16 15:39 Est GFR ( Amer) TNP 08/17/16 15:39 Est GFR (Non-Af Amer) TNP 08/17/16 15:39 BUN/Creatinine Ratio 13.3 08/17/16 15:39 Glucose 87 mg/dL (70-105) 08/17/16 15:39 Calcium 9.3 mg/dL (8.6-10.3) 08/17/16 15:39 Total Bilirubin 0.3 mg/dL (0.3-1.0) 08/17/16 15:39 AST 11 U/L (13-39) L 08/17/16 15:39 ALT 8 U/L (7-52) 08/17/16 15:39 Alkaline Phosphatase 85 U/L (34-104) 08/17/16 15:39 Total Protein 6.4 gm/dL (6.0-8.3) 08/17/16 15:39 Albumin 3.9 gm/dL (3.7-5.3) 08/17/16 15:39 Globulin 2.5 gm/dL 08/17/16 15:39 Albumin/Globulin Ratio 1.6 (1.0-1.8) 08/17/16 15:39 TSH 1.05 uIU/ml (0.34-5.60) 08/17/16 15:39 Urine Source CLEAN C 08/17/16 16:15 Urine Color PALE YELLOW 08/17/16 16:15 Urine Clarity CLEAR (CLEAR) 08/17/16 16:15 Urine pH 7.0 08/17/16 16:15 Ur Specific [place] 1.010 (1.005-1.030) 08/17/16 16:15 Urine Protein NEGATIVE mg/dL (NEGATIVE) 08/17/16 16:15 Urine Glucose (UA) NEGATIVE mg/dL (NEGATIVE) 08/17/16 16:15 Urine Ketones NEGATIVE mg/dL (NEGATIVE) 08/17/16 16:15 Urine Blood TRACE (NEGATIVE) 08/17/16 16:15 Urine Nitrate NEGATIVE (NEGATIVE) 08/17/16 16:15 Urine Bilirubin NEGATIVE (NEGATIVE) 08/17/16 16:15 Urine Urobilinogen 0.2 E.U./dL (0.2 - 1.0) 08/17/16 16:15 Ur Leukocyte Esterase NEGATIVE (NEGATIVE) 08/17/16 16:15 Urine RBC 0-2 /hpf (0-5) 08/17/16 16:15 Urine WBC 0-2 /hpf (0-5) 08/17/16 16:15 Ur Epithelial Cells RARE /lpf (FEW) 08/17/16 16:15 Urine Bacteria OCCASIONAL /hpf (NONE SEEN) 08/17/16 16:15 RPR NONREACTIVE (NONREACTIVE) 08/17/16 15:39 - Physical Exam Vitals and I&O: Vital Signs Temp 97.8 F 08/23/16 14:00 Pulse 74 08/24/16 14:34 Resp 20 08/24/16 14:34 BP 141/76 08/24/16 08:37 Pulse Ox 98 08/24/16 14:34 Intake & Output 08/23/16 08/24/16 08/24/16 18:59 06:59 18:59 Intake Total 900 Balance 900 Weight (lbs) 194 lb 14.4 oz Intake: Oral 900 Other: # Voids 1 Active Medications: Current Medications Acetaminophen (Tylenol) 650 mg PO Q4HR PRN PRN Reason: Pain (Mild) Stop: 10/17/16 02:25 Last Admin: 08/21/16 01:03 Dose: 650 mg Albuterol Sulfate (Albuterol 2.5mg/3ml Neb Ud) 2.5 mg HHN Q4H PRN PRN Reason: Shortness of Breath Stop: 10/17/16 08:04 Last Admin: 08/23/16 05:47 Dose: 2.5 mg Albuterol Sulfate (Albuterol 2.5mg/3ml Neb Ud) 2.5 mg HHN QIDRT [facility] Stop: 10/17/16 10:59 Last Admin: 08/24/16 14:34 Dose: 2.5 mg Alprazolam (Xanax) 0.5 mg PO TID [facility] Stop: 10/23/16 12:06 Last Admin: 08/24/16 14:25 Dose: 0.5 mg Aripiprazole (Abilify) 10 mg PO DAILY [facility] PRN Reason: Protocol Stop: 10/20/16 11:45 Last Admin: 08/24/16 08:35 Dose: 10 mg Atenolol (Tenormin) 50 mg PO BID [facility] Stop: 10/17/16 08:59 Last Admin: 08/24/16 08:34 Dose: 50 mg Budesonide (Pulmicort) 0.5 mg HHN BIDRT [facility] Stop: 10/17/16 18:59 Last Admin: 08/24/16 07:14 Dose: 0.5 mg Celecoxib (Celebrex) 100 mg PO DAILY [facility] Stop: 10/17/16 17:59 Last Admin: 08/24/16 08:37 Dose: 100 mg Clopidogrel Bisulfate (Plavix) 75 mg PO DAILY [facility] Stop: 10/17/16 08:59 Last Admin: 08/24/16 08:36 Dose: 75 mg Furosemide (Lasix) 40 mg PO DAILY [facility] Stop: 10/17/16 08:59 Last Admin: 08/24/16 08:37 Dose: 40 mg Gabapentin (Neurontin) 100 mg PO TID [facility] Stop: 10/23/16 13:59 Last Admin: 08/24/16 14:26 Dose: 100 mg Ipratropium [place] (Atrovent Neb 0.5mg/2.5ml) 0.5 mg HHN QIDRT [facility] Stop: 10/17/16 10:59 Last Admin: 08/24/16 14:34 Dose: 0.5 mg Lactulose (Cephulac) 20 gm PO TID [facility] Stop: 10/17/16 08:59 Last Admin: 08/24/16 14:27 Dose: Not Given Lidocaine (Lidoderm 5% Patch) 1 patch TD DAILY [facility] Stop: 10/17/16 08:59 Last Admin: 08/24/16 08:41 Dose: 1 patch Lorazepam (Ativan) 1 mg PO Q6H PRN; Protocol PRN Reason: Anxiety Stop: 10/16/16 20:13 Last Admin: 08/21/16 17:04 Dose: 1 mg Methadone HCl (Methadone) 10 mg PO TID [facility] Stop: 10/16/16 20:59 Last Admin: 08/24/16 14:25 Dose: 10 mg Oxybutynin Chloride (Ditropan Xl) 10 mg PO DAILY [facility] Stop: 10/17/16 08:59 Last Admin: 08/24/16 08:35 Dose: 10 mg Pantoprazole Sodium (Protonix) 40 mg PO DAILY [facility] Stop: 10/17/16 08:59 Last Admin: 08/24/16 08:38 Dose: 40 mg Senna (Senna) 17.2 mg PO BID [facility] Stop: 10/17/16 08:59 Last Admin: 08/24/16 08:36 Dose: Not Given Tizanidine HCl (Zanaflex) 4 mg PO TID [facility] Stop: 10/16/16 20:59 Last Admin: 08/24/16 14:26 Dose: 4 mg Trazodone HCl (Desyrel) 200 mg PO HS [facility] Stop: 10/17/16 20:59 Last Admin: 08/23/16 20:33 Dose: 200 mg Venlafaxine HCl (Effexor Xr) 225 mg PO DAILY [facility] Stop: 10/21/16 12:18 Last Admin: 08/24/16 08:34 Dose: 225 mg General: alert HEENT: NC/AT, PERRLA Neck: Supple Lungs: CTAB Cardiovascular: RRR, Normal S1, Normal S2, without murmur Abdomen: soft non-tender Extremities: clear Internal Medicine Assmt/Plan - Assessment Assessment: copd htn djd chronic pain syndrome obesity psychotic disorder gerd urinary incontinence debility - Plan Plan: monitor for any respiratory distress supplemental o2 cpm
--- NOTE | 2016-08-25 00:58 | Progress Notes ---
Case discussed with staff of the patient, reviewed records. The patient reported that she has to go home because otherwise she will lose her money, that she has her account on a hold, that her daughter has to come and pick her up and that is the only one day that she can come and pick her up. The patient reported that she does not take the Xanax on a daily basis. She only takes it if needed. Apparently since she came, they have her on 1 mg 3 times a day. She said she does have the prescription, but she only uses it as needed, so I will be tapering off the dose to 0.5 mg 3 times a day and maybe have her take it only as needed when she goes home and so far, no side effects with the medication, no sedation, no nausea, no extrapyramidal symptoms. The patient also reported that she takes methadone and she would like to decrease the dose to half and she plans to do that. I will be initiating Neurontin on this patient because of her anxiety and also because she takes the Xanax since admission for the last week and I do not want her to go through withdrawal. I will put her on 100 mg 3 times a day. We will continue to work with the patient in group therapy, milieu therapy, adjust the medication as needed. [facility]# [id number]
[2016-08-25] MEDS: Ipratropium Neb 0.5 mg/2.5 mL UD HHN SCH ×4 (07:18→18:48)
[2016-08-25] MEDS: Albuterol Nebulizer 2.5mg/3mL HHN SCH ×4 (07:18→18:48)
[2016-08-25] MEDS: Budesonide 0.5 Mg/2 mL Ud HHN SCH ×2 (07:19→18:49)
[2016-08-25] MEDS: Oxybutynin Chloride 5 mg ER Tab PO SCH (09:35)
[2016-08-25] MEDS: Pantoprazole 40 mg EC Tab PO SCH (09:36)
[2016-08-25] MEDS: Lidocaine 5% Patch TD SCH (09:37)
[2016-08-25] MEDS: Lactulose 10 Gm/15 mL 30mL UDC PO SCH ×3 (10:40→20:44)
--- NOTE | 2016-08-25 14:41 | Internal Medicine Prog Note ---
Internal Medicine Subjective - Subjective Service Date: 08/25/16 Patient seen and examined:: with staff Patient is:: awake Per staff patient is:: no adverse event Internal Medicine Objective - Results Result Diagrams: 08/17/16 15:39 08/17/16 15:39 Recent Labs: Laboratory Last Values WBC 6.7 Th/cmm (4.8-10.8) 08/17/16 15:39 RBC 5.17 Mil/cmm (3.80-5.20) 08/17/16 15:39 Hgb 15.5 gm/dL (11.7-16.1) 08/17/16 15:39 Hct 45.6 % (35.0-45.0) H 08/17/16 15:39 MCV 88.2 fl (81-100) 08/17/16 15:39 MCH 29.9 pg (27.0-31.0) 08/17/16 15:39 MCHC Differential 33.9 pg (28.0-36.0) 08/17/16 15:39 RDW 12.8 % (11.5-20.0) 08/17/16 15:39 Plt Count 197 Th/cmm (150-400) 08/17/16 15:39 MPV 8.0 fl 08/17/16 15:39 Neutrophils % 70.2 % (40.0-80.0) 08/17/16 15:39 Lymphocytes % 22.9 % (20.0-50.0) 08/17/16 15:39 Monocytes % 4.4 % (2.0-10.0) 08/17/16 15:39 Eosinophils % 2.4 % (0.0-5.0) 08/17/16 15:39 Basophils % 0.1 % (0.0-2.0) 08/17/16 15:39 Sodium 131 mEq/L (136-145) L 08/17/16 15:39 Potassium 4.0 mEq/L (3.5-5.1) 08/17/16 15:39 Chloride 97 mEq/L (98-107) L 08/17/16 15:39 Carbon Dioxide 28.9 mEq/L (21.0-31.0) 08/17/16 15:39 Anion Gap 9.1 (7.0-16.0) 08/17/16 15:39 BUN 12 mg/dL (7-25) 08/17/16 15:39 Creatinine 0.9 mg/dL (0.6-1.2) 08/17/16 15:39 Est GFR ( Amer) TNP 08/17/16 15:39 Est GFR (Non-Af Amer) TNP 08/17/16 15:39 BUN/Creatinine Ratio 13.3 08/17/16 15:39 Glucose 87 mg/dL (70-105) 08/17/16 15:39 Calcium 9.3 mg/dL (8.6-10.3) 08/17/16 15:39 Total Bilirubin 0.3 mg/dL (0.3-1.0) 08/17/16 15:39 AST 11 U/L (13-39) L 08/17/16 15:39 ALT 8 U/L (7-52) 08/17/16 15:39 Alkaline Phosphatase 85 U/L (34-104) 08/17/16 15:39 Total Protein 6.4 gm/dL (6.0-8.3) 08/17/16 15:39 Albumin 3.9 gm/dL (3.7-5.3) 08/17/16 15:39 Globulin 2.5 gm/dL 08/17/16 15:39 Albumin/Globulin Ratio 1.6 (1.0-1.8) 08/17/16 15:39 TSH 1.05 uIU/ml (0.34-5.60) 08/17/16 15:39 Urine Source CLEAN C 08/17/16 16:15 Urine Color PALE YELLOW 08/17/16 16:15 Urine Clarity CLEAR (CLEAR) 08/17/16 16:15 Urine pH 7.0 08/17/16 16:15 Ur Specific [place] 1.010 (1.005-1.030) 08/17/16 16:15 Urine Protein NEGATIVE mg/dL (NEGATIVE) 08/17/16 16:15 Urine Glucose (UA) NEGATIVE mg/dL (NEGATIVE) 08/17/16 16:15 Urine Ketones NEGATIVE mg/dL (NEGATIVE) 08/17/16 16:15 Urine Blood TRACE (NEGATIVE) 08/17/16 16:15 Urine Nitrate NEGATIVE (NEGATIVE) 08/17/16 16:15 Urine Bilirubin NEGATIVE (NEGATIVE) 08/17/16 16:15 Urine Urobilinogen 0.2 E.U./dL (0.2 - 1.0) 08/17/16 16:15 Ur Leukocyte Esterase NEGATIVE (NEGATIVE) 08/17/16 16:15 Urine RBC 0-2 /hpf (0-5) 08/17/16 16:15 Urine WBC 0-2 /hpf (0-5) 08/17/16 16:15 Ur Epithelial Cells RARE /lpf (FEW) 08/17/16 16:15 Urine Bacteria OCCASIONAL /hpf (NONE SEEN) 08/17/16 16:15 RPR NONREACTIVE (NONREACTIVE) 08/17/16 15:39 - Physical Exam Vitals and I&O: Vital Signs Temp 96.6 F 08/25/16 07:06 Pulse 68 08/25/16 11:12 Resp 18 08/25/16 11:12 BP 131/71 08/25/16 10:39 Pulse Ox 97 08/25/16 11:12 Intake & Output 08/24/16 08/25/16 08/25/16 18:59 06:59 18:59 Intake Total 1000 Balance 1000 Weight (lbs) 194 lb 14.4 oz Intake: Oral 1000 Other: # Voids 3 2 # Bowel Movements 1 Active Medications: Current Medications Acetaminophen (Tylenol) 650 mg PO Q4HR PRN PRN Reason: Pain (Mild) Stop: 10/17/16 02:25 Last Admin: 08/21/16 01:03 Dose: 650 mg Albuterol Sulfate (Albuterol 2.5mg/3ml Neb Ud) 2.5 mg HHN Q4H PRN PRN Reason: Shortness of Breath Stop: 10/17/16 08:04 Last Admin: 08/23/16 05:47 Dose: 2.5 mg Albuterol Sulfate (Albuterol 2.5mg/3ml Neb Ud) 2.5 mg HHN QIDRT [facility] Stop: 10/17/16 10:59 Last Admin: 08/25/16 14:34 Dose: 2.5 mg Alprazolam (Xanax) 0.5 mg PO TID [facility] Stop: 10/23/16 12:06 Last Admin: 08/25/16 10:39 Dose: Not Given Aripiprazole (Abilify) 10 mg PO DAILY JILL PRN Reason: Protocol Stop: 10/20/16 11:45 Last Admin: 08/25/16 09:36 Dose: 10 mg Atenolol (Tenormin) 50 mg PO BID J[facility] Stop: 10/17/16 08:59 Last Admin: 08/25/16 09:34 Dose: 50 mg Budesonide (Pulmicort) 0.5 mg HHN BIDRT [facility] Stop: 10/17/16 18:59 Last Admin: 08/25/16 07:19 Dose: 0.5 mg Celecoxib (Celebrex) 100 mg PO DAILY JILL Stop: 10/17/16 17:59 Last Admin: 08/25/16 09:36 Dose: 100 mg Clopidogrel Bisulfate (Plavix) 75 mg PO DAILY [facility] Stop: 10/17/16 08:59 Last Admin: 08/25/16 09:35 Dose: 75 mg Furosemide (Lasix) 40 mg PO DAILY [facility] Stop: 10/17/16 08:59 Last Admin: 08/25/16 10:39 Dose: Not Given Gabapentin (Neurontin) 300 mg PO BID [facility] Stop: 10/24/16 16:59 Ipratropium [place] (Atrovent Neb 0.5mg/2.5ml) 0.5 mg HHN QIDRT [facility] Stop: 10/17/16 10:59 Last Admin: 08/25/16 14:34 Dose: 0.5 mg Lactulose (Cephulac) 20 gm PO TID [facility] Stop: 10/17/16 08:59 Last Admin: 08/25/16 10:40 Dose: Not Given Lidocaine (Lidoderm 5% Patch) 1 patch TD DAILY [facility] Stop: 10/17/16 08:59 Last Admin: 08/25/16 09:37 Dose: 1 patch Oxybutynin Chloride (Ditropan Xl) 10 mg PO DAILY [facility] Stop: 10/17/16 08:59 Last Admin: 08/25/16 09:35 Dose: 10 mg Pantoprazole Sodium (Protonix) 40 mg PO DAILY J[facility] Stop: 10/17/16 08:59 Last Admin: 08/25/16 09:36 Dose: 40 mg Senna (Senna) 17.2 mg PO BID [facility] Stop: 10/17/16 08:59 Last Admin: 08/25/16 10:39 Dose: Not Given Tizanidine HCl (Zanaflex) 4 mg PO TID [facility] Stop: 10/16/16 20:59 Last Admin: 08/25/16 09:37 Dose: 4 mg Trazodone HCl (Desyrel) 200 mg PO HS [facility] Stop: 10/17/16 20:59 Last Admin: 08/24/16 21:03 Dose: 200 mg Venlafaxine HCl (Effexor Xr) 225 mg PO DAILY [facility] Stop: 10/21/16 12:18 Last Admin: 08/25/16 09:37 Dose: 225 mg General: alert HEENT: NC/AT, PERRLA Neck: Supple Lungs: CTAB Cardiovascular: RRR, Normal S1, Normal S2, without murmur Abdomen: soft non-tender Internal Medicine Assmt/Plan - Assessment Assessment: copd htn djd chronic pain syndrome obesity psychotic disorder gerd urinary incontinence debility - Plan Plan: monitor for any respiratory distress supplemental o2 cpm
--- NOTE | 2016-08-26 00:12 | Progress Notes ---
Case was discussed with staff of the patient. The patient was reported by the staff to be confused, easily agitated and irritable. Continues to have poor insight. However, she is willing to go today to a nursing facility and if she could go to a nursing facility that would be a good plan; however, if she could not, then I am not sure if she can still go home yet. I did try to taper off the Xanax, yesterday went down to 0.5 mg 3 times a day, added Neurontin to help with that and I will be increasing the Neurontin dose with the preparation of taking her off the Xanax as she reports she was not taking it on a regular basis, so I ended up given it on a regular basis and I will be increasing the Neurontin to 300 mg twice a day and so far no side effects, no sedation, no nausea, and no extrapyramidal symptoms. We will continue to work with the patient in group therapy, milieu therapy, and adjust the medication as needed. JOB# [id number]
[2016-08-26] MEDS: Ipratropium Neb 0.5 mg/2.5 mL UD HHN SCH ×4 (06:45→19:45)
[2016-08-26] MEDS: Budesonide 0.5 Mg/2 mL Ud HHN SCH ×2 (06:45→19:44)
[2016-08-26] MEDS: Albuterol Nebulizer 2.5mg/3mL HHN SCH ×4 (06:45→19:45)
[2016-08-26 07:11] LABS: BUN - UREA NITROGEN 12 mg/dL (7-25); CALCIUM SERUM 10.2 mg/dL (8.6-10.3); CARBON DIOXIDE 32.5 mEq/L (21.0-31.0); CHLORIDE 92 mEq/L (98-107); GLUCOSE 93 mg/dL (70-105); POTASSIUM SERUM 4.5 mEq/L (3.5-5.1); SODIUM SERUM 131 mEq/L (136-145)
[2016-08-26] MEDS: Pantoprazole 40 mg EC Tab PO SCH (08:28)
[2016-08-26] MEDS: Oxybutynin Chloride 5 mg ER Tab PO SCH (08:29)
[2016-08-26] MEDS: Lactulose 10 Gm/15 mL 30mL UDC PO SCH ×3 (08:35→21:25)
[2016-08-26] MEDS: Lidocaine 5% Patch TD SCH (08:36)
--- NOTE | 2016-08-26 12:05 | Internal Medicine Prog Note ---
Internal Medicine Subjective - Subjective Service Date: 08/26/16 Patient seen and examined:: with staff Patient is:: awake Per staff patient is:: no adverse event Internal Medicine Objective - Results Result Diagrams: 08/17/16 15:39 08/26/16 06:33 Recent Labs: Laboratory Last Values WBC 6.7 Th/cmm (4.8-10.8) 08/17/16 15:39 RBC 5.17 Mil/cmm (3.80-5.20) 08/17/16 15:39 Hgb 15.5 gm/dL (11.7-16.1) 08/17/16 15:39 Hct 45.6 % (35.0-45.0) H 08/17/16 15:39 MCV 88.2 fl (81-100) 08/17/16 15:39 MCH 29.9 pg (27.0-31.0) 08/17/16 15:39 MCHC Differential 33.9 pg (28.0-36.0) 08/17/16 15:39 RDW 12.8 % (11.5-20.0) 08/17/16 15:39 Plt Count 197 Th/cmm (150-400) 08/17/16 15:39 MPV 8.0 fl 08/17/16 15:39 Neutrophils % 70.2 % (40.0-80.0) 08/17/16 15:39 Lymphocytes % 22.9 % (20.0-50.0) 08/17/16 15:39 Monocytes % 4.4 % (2.0-10.0) 08/17/16 15:39 Eosinophils % 2.4 % (0.0-5.0) 08/17/16 15:39 Basophils % 0.1 % (0.0-2.0) 08/17/16 15:39 Sodium 131 mEq/L (136-145) L 08/26/16 06:33 Potassium 4.5 mEq/L (3.5-5.1) 08/26/16 06:33 Chloride 92 mEq/L (98-107) L 08/26/16 06:33 Carbon Dioxide 32.5 mEq/L (21.0-31.0) H 08/26/16 06:33 Anion Gap 11.0 (7.0-16.0) 08/26/16 06:33 BUN 12 mg/dL (7-25) 08/26/16 06:33 Creatinine 1.0 mg/dL (0.6-1.2) 08/26/16 06:33 Est GFR ( Amer) TNP 08/26/16 06:33 Est GFR (Non-Af Amer) TNP 08/26/16 06:33 BUN/Creatinine Ratio 12.0 08/26/16 06:33 Glucose 93 mg/dL (70-105) 08/26/16 06:33 Calcium 10.2 mg/dL (8.6-10.3) 08/26/16 06:33 Total Bilirubin 0.3 mg/dL (0.3-1.0) 08/17/16 15:39 AST 11 U/L (13-39) L 08/17/16 15:39 ALT 8 U/L (7-52) 08/17/16 15:39 Alkaline Phosphatase 85 U/L (34-104) 08/17/16 15:39 Total Protein 6.4 gm/dL (6.0-8.3) 08/17/16 15:39 Albumin 3.9 gm/dL (3.7-5.3) 08/17/16 15:39 Globulin 2.5 gm/dL 08/17/16 15:39 Albumin/Globulin Ratio 1.6 (1.0-1.8) 08/17/16 15:39 TSH 1.05 uIU/ml (0.34-5.60) 08/17/16 15:39 Urine Source CLEAN C 08/17/16 16:15 Urine Color PALE YELLOW 08/17/16 16:15 Urine Clarity CLEAR (CLEAR) 08/17/16 16:15 Urine pH 7.0 08/17/16 16:15 Ur Specific [place] 1.010 (1.005-1.030) 08/17/16 16:15 Urine Protein NEGATIVE mg/dL (NEGATIVE) 08/17/16 16:15 Urine Glucose (UA) NEGATIVE mg/dL (NEGATIVE) 08/17/16 16:15 Urine Ketones NEGATIVE mg/dL (NEGATIVE) 08/17/16 16:15 Urine Blood TRACE (NEGATIVE) 08/17/16 16:15 Urine Nitrate NEGATIVE (NEGATIVE) 08/17/16 16:15 Urine Bilirubin NEGATIVE (NEGATIVE) 08/17/16 16:15 Urine Urobilinogen 0.2 E.U./dL (0.2 - 1.0) 08/17/16 16:15 Ur Leukocyte Esterase NEGATIVE (NEGATIVE) 08/17/16 16:15 Urine RBC 0-2 /hpf (0-5) 08/17/16 16:15 Urine WBC 0-2 /hpf (0-5) 08/17/16 16:15 Ur Epithelial Cells RARE /lpf (FEW) 08/17/16 16:15 Urine Bacteria OCCASIONAL /hpf (NONE SEEN) 08/17/16 16:15 RPR NONREACTIVE (NONREACTIVE) 08/17/16 15:39 - Physical Exam Vitals and I&O: Vital Signs Temp 97.1 F 08/26/16 07:21 Pulse 71 08/26/16 11:15 Resp 16 08/26/16 11:15 BP 112/77 08/26/16 08:36 Pulse Ox 92 08/26/16 11:15 Intake & Output 08/25/16 08/26/16 08/26/16 18:59 06:59 18:59 Intake Total 1000 240 Balance 1000 240 Intake: Oral 1000 240 Other: # Voids 3 1 2 # Bowel Movements 1 Active Medications: Current Medications Acetaminophen (Tylenol) 650 mg PO Q4HR PRN PRN Reason: Pain (Mild) Stop: 10/17/16 02:25 Last Admin: 08/21/16 01:03 Dose: 650 mg Albuterol Sulfate (Albuterol 2.5mg/3ml Neb Ud) 2.5 mg HHN Q4H PRN PRN Reason: Shortness of Breath Stop: 10/17/16 08:04 Last Admin: 08/23/16 05:47 Dose: 2.5 mg Albuterol Sulfate (Albuterol 2.5mg/3ml Neb Ud) 2.5 mg HHN QIDRT ON LICENSE OF [facility] Stop: 10/17/16 10:59 Last Admin: 08/26/16 10:51 Dose: 2.5 mg Alprazolam (Xanax) 0.5 mg PO TID [facility] OF [facility] Stop: 10/23/16 12:06 Last Admin: 08/26/16 08:29 Dose: 0.5 mg Aripiprazole (Abilify) 10 mg PO DAILY JILL PRN Reason: Protocol Stop: 10/20/16 11:45 Last Admin: 08/26/16 08:32 Dose: 10 mg Atenolol (Tenormin) 50 mg PO BID [facility] Stop: 10/17/16 08:59 Last Admin: 08/26/16 08:36 Dose: Not Given Budesonide (Pulmicort) 0.5 mg HHN BIDRT [facility] Stop: 10/17/16 18:59 Last Admin: 08/26/16 06:45 Dose: 0.5 mg Celecoxib (Celebrex) 100 mg PO DAILY [facility] Stop: 10/17/16 17:59 Last Admin: 08/26/16 08:32 Dose: 100 mg Clopidogrel Bisulfate (Plavix) 75 mg PO DAILY [facility] Stop: 10/17/16 08:59 Last Admin: 08/26/16 08:29 Dose: 75 mg Furosemide (Lasix) 40 mg PO DAILY [facility] Stop: 10/17/16 08:59 Last Admin: 08/26/16 08:35 Dose: Not Given Gabapentin (Neurontin) 300 mg PO BID [facility] Stop: 10/24/16 16:59 Last Admin: 08/26/16 08:27 Dose: 300 mg Ipratropium [place] (Atrovent Neb 0.5mg/2.5ml) 0.5 mg HHN QIDRT [facility] Stop: 10/17/16 10:59 Last Admin: 08/26/16 10:51 Dose: 0.5 mg Lactulose (Cephulac) 20 gm PO TID [facility] Stop: 10/17/16 08:59 Last Admin: 08/26/16 08:35 Dose: 20 gm Lidocaine (Lidoderm 5% Patch) 1 patch TD DAILY [facility] Stop: 10/17/16 08:59 Last Admin: 08/26/16 08:36 Dose: 1 patch Methadone HCl (Methadone) 10 mg PO TID [facility] Stop: 10/24/16 20:59 Last Admin: 08/26/16 08:28 Dose: 10 mg Oxybutynin Chloride (Ditropan Xl) 10 mg PO DAILY [facility] Stop: 10/17/16 08:59 Last Admin: 08/26/16 08:29 Dose: 10 mg Pantoprazole Sodium (Protonix) 40 mg PO DAILY [facility] Stop: 10/17/16 08:59 Last Admin: 08/26/16 08:28 Dose: 40 mg Senna (Senna) 17.2 mg PO BID [facility] Stop: 10/17/16 08:59 Last Admin: 08/26/16 08:34 Dose: 17.2 mg Tizanidine HCl (Zanaflex) 4 mg PO TID [facility] Stop: 10/16/16 20:59 Last Admin: 08/26/16 08:30 Dose: 4 mg Trazodone HCl (Desyrel) 200 mg PO HS [facility] Stop: 10/17/16 20:59 Last Admin: 08/25/16 20:46 Dose: 200 mg Venlafaxine HCl (Effexor Xr) 225 mg PO DAILY [facility] Stop: 10/21/16 12:18 Last Admin: 08/26/16 08:32 Dose: 225 mg General: alert HEENT: NC/AT, PERRLA Neck: Supple Lungs: CTAB Cardiovascular: RRR, Normal S1, Normal S2, without murmur Abdomen: soft non-tender Extremities: clear Internal Medicine Assmt/Plan - Assessment Assessment: copd htn djd chronic pain syndrome obesity psychotic disorder gerd urinary incontinence debility - Plan Plan: monitor for any respiratory distress supplemental o2 cpm
[2016-08-27] MEDS: Ipratropium Neb 0.5 mg/2.5 mL UD HHN SCH ×4 (06:33→20:00)
[2016-08-27] MEDS: Budesonide 0.5 Mg/2 mL Ud HHN SCH ×2 (06:33→19:58)
[2016-08-27] MEDS: Albuterol Nebulizer 2.5mg/3mL HHN SCH ×4 (06:33→19:59)
--- NOTE | 2016-08-27 08:47 | Progress Notes ---
Dr. Ndiaye covering for Dr. Osborne. SUBJECTIVE: The patient was seen and evaluated. The patient's chart reviewed. Overnight, nursing staff reported that she is easily irritable, intrusive, hypersexual kissing other staff members. IDENTIFYING DATA: She is a 71-year-old female with a history of anxiety and depression. Today on [id number] evaluation, the patient reports that recent increases of antidepressant have making her feel slightly better, still finds at times helpless and hopeless. MENTAL STATUS EXAMINATION: Still melancholic, depressed, poor insight, poor judgment, poor impulse control. MEDICATIONS: She is on venlafaxine 225 a day, trazodone 200 mg at nighttime. She is on Senna, Protonix, methadone 10 mg 3 times a day, gabapentin 300 mg 2 times a day, Lasix, Plavix, Librax, Abilify 10 mg a day, and Xanax 0.5 mg 3 times a day. ASSESSMENT AND PLAN: The patient is a 71-year-old female with a depressive disorder, augmented antidepressant with Ability and tolerating medication well without any side effects of the medications. Due to the patient's still melancholic state, at the present state, she is unable to formulate a safe plan outside in a structured environment. We will continue to monitor and evaluate her. We will continue with primary treatment plan and goals. JOB# [id number] MABLE
[2016-08-27] MEDS: Pantoprazole 40 mg EC Tab PO SCH (09:33)
[2016-08-27] MEDS: Oxybutynin Chloride 5 mg ER Tab PO SCH (09:34)
[2016-08-27] MEDS: Lactulose 10 Gm/15 mL 30mL UDC PO SCH ×3 (09:34→20:36)
[2016-08-27] MEDS: Lidocaine 5% Patch TD SCH (09:39)
--- NOTE | 2016-08-28 06:09 | Progress Notes ---
This is Dr. Ndiaye covering for Dr. Osborne. SUBJECTIVE: The patient was seen and evaluated. The patient's chart is discussed with the staff members. Overnight, staff members reported that the patient continues to be intrusive, hypersexual at times. IDENTIFYING DATA: This 71-year-old female with a history of anxiety, depression. Today, on [id number] evaluation, the patient reports that she is feeling slightly better. She denies any side effects to the medications. At times, she is irritable, anxious, and irritability. MENTAL STATUS EXAMINATION: She is still sad, depressed, poor insight, judgment and impulse control. Medications were reviewed. ASSESSMENT AND PLAN: A 71-year-old female with a history of major depressive disorder. We will continue with the current medication regimen if she is tolerating and she is able to tolerate it without any side effects and is targeting the patient's depression. [facility]# [id number] MABLE
[2016-08-28] MEDS: Albuterol Nebulizer 2.5mg/3mL HHN SCH ×2 (06:37→10:52)
[2016-08-28] MEDS: Ipratropium Neb 0.5 mg/2.5 mL UD HHN SCH ×2 (06:37→10:52)
[2016-08-28] MEDS: Budesonide 0.5 Mg/2 mL Ud HHN SCH (06:38)
[2016-08-28] MEDS: Oxybutynin Chloride 5 mg ER Tab PO SCH (09:04)
[2016-08-28] MEDS: Lidocaine 5% Patch TD SCH (09:04)
[2016-08-28] MEDS: Lactulose 10 Gm/15 mL 30mL UDC PO SCH (09:08)
[2016-08-28] MEDS: Pantoprazole 40 mg EC Tab PO SCH (09:09)
--- NOTE | 2016-08-28 19:28 | Progress Notes ---
SUBJECTIVE: The patient was seen, chart reviewed, and discussed with staff. The patient is currently in the hospital, depressed, long history of depression, noted to have delusions, paranoia, and psychotic symptoms. The patient states that she is "leaving today." She states she is here because of methadone. She states she lives alone and will be going back home today, but there is no confirmation of placement and no sign out of discharge today. Dr. Ndiaye has been seeing the patient over the past few days. The patient is still noted to be intrusive, hypersexual at times, still sad, depressed, and withdrawn. Medications were reviewed. Labs were reviewed. No overt side effects noted. ASSESSMENT: The patient is still anxious, still irritable, and still concerns about safety. We are also trying to confirm placement at this time. PLAN: We will continue to monitor, continue to redirect, and titrate medications as tolerated. [facility]# [id number]
--- NOTE | 2016-08-29 11:13 | Progress Notes ---
SUBJECTIVE: The patient is being seen in followup. The patient is sleeping in her room, but is arousable by verbal stimuli. The patient states that she needs to be discharged right away so that she can le her check and it is going to be arriving in the mail at her house so that she would not be evicted. The patient continues to perseverate on being discharged and presents as somewhat manipulative in her choices and staff reports that she has been irritable as well as intrusive and somewhat hypersexual, i.e., she has been attempting to hug and kiss other staff members. The patient continued to request being discharged and this magnetic tape typewriter operator discussed with her the criteria to be met prior to discharge and then she was not medically stable. This magnetic tape typewriter operator also reviewed the patient's senior care goals. The patient presents as hypomanic with poor cognitive redirection at times due to the preservation. OBJECTIVE: Mood hypomanic and depressed. Affect expansive and animated. Thought process perseverating on discharge with secondary gain. The patient at times has verbalized conflicting statements regarding her living and financial circumstances as well as relationship with her daughter. There is some evidence of nonspecific delusion. The patient's behavior has recently been hypersexual and restless. ASSESSMENT AND PLAN: The patient's records indicate history of bipolar disorder, however, the patient did not acknowledge this verbally. The patient continues to have a depressive disorder and is exhibiting manic symptoms. The patient also seems to be anxious in her present state. She is unable to formulate a plan for discharge. The patient had accepted placement at [facility]; however, she has changed her mind and is requesting to be discharged home. The patient seems to be tolerating her medication without any side effects. This magnetic tape typewriter operator provided reality integration as well as goal-oriented solution focus therapy. De-escalation was provided as well as cognitive refocusing on the patient's care and treatment here. This magnetic tape typewriter operator started cognitive behavioral therapy last session; however, the patient is having difficulty following through with this type of treatment. The patient responds to insight oriented treatment, but is unable to apply coping strategies to her present circumstances. We will continue to monitor for any changes in mood and cognition. We will provide motivational enhancement and positive reinforcement for her to continue with her primary treatment plan and treatment goals. This magnetic tape typewriter operator contacted the manager social media/showcase maker with respect to the patient's concerns about her finances as well as her contact with family going forward. JOB# [id number] MABLE
--- NOTE | 2016-10-14 20:44 | Discharge Summary ---
IDENTIFYING INFORMATION: The patient is a 71-year-old female. CHIEF COMPLAINT: "I have been depressed." HISTORY OF PRESENT ILLNESS: The patient was referred because delusions, paranoia and depression. The patient has been depressed for the last month. She said she has so many stressors. She has a roommate that she does not trust, so she does not want to harm herself or anybody. She denies any visual hallucination or paranoia. She reports sleeping and eating poorly. She has long history of psychiatric treatment. She has been in depression. She denies any prior suicide attempts. ALLERGIES: SHE IS ALLERGIC TO STEROIDS. COURSE IN THE HOSPITAL: The patient was started back on Effexor 150 mg a day, Abilify 5 mg a day, trazodone 200 mg at bedtime. The patient also was diagnosed with COPD, hypertension, degenerative joint disease and chronic pain syndrome. The patient progressively started getting better. Her medication was adjusted with trazodone dose was increased to 200 mg at bedtime, venlafaxine was 150 mg daily and she was on alprazolam 1 mg 3 times a day ____ back, though later I found that she was not taking it on a regular basis and it was decreased to 0.5 mg 3 times a day. The patient was given Neurontin 100 mg 3 times a day, increased to 300 mg twice a day. She was on lisinopril. She was on methadone 10 mg 3 times a day and Effexor dose was increased to 225 mg daily. The patient progressively got better. She was trying to ____ facility and then her daughter was unsure about what they wanted. However, in my absence she was seen by the doctor thao and at that point patient was discharged against medical advice. ____ was seeing her. He kept her on the same medication. FINAL DIAGNOSES: AXIS I: Bipolar disorder with psychosis. MEDICAL DIAGNOSES: Chronic obstructive pulmonary disease, hypertension, degenerative joint disease, chronic pain, obesity, gastroesophageal reflux disease, urinary incontinence, debility. The patient left against medical advice. The patient was advised to follow up with the psychiatrist, primary care physician. EXPECTED OUTCOME: Stable if the patient complies with the above. [facility]# [id number]
== END 2016-08-28 14:10 | disposition left against medical advice (07) | DRG 885 ==
LOC: ER 15:09 → GERO 17:50
PROVIDERS: ADMIT Psychiatry & Neurology Psychiatry; ATTEND Psychiatry & Neurology Psychiatry
DX: F31.9 Bipolar disorder, unspecified (principal); J44.9 Chronic obstructive pulmonary disease, unspecified; M19.90 Unspecified osteoarthritis, unspecified site; F29 Unspecified psychosis not due to a substance or known physiological condition; F17.210 Nicotine dependence, cigarettes, uncomplicated; I10 Essential (primary) hypertension; G89.4 Chronic pain syndrome; E66.9 Obesity, unspecified; K21.9 Gastro-esophageal reflux disease without esophagitis; R32 Unspecified urinary incontinence; Z83.3 Family history of diabetes mellitus; Z82.49 Family history of ischemic heart disease and other diseases of the circulatory system; Z88.8 Allergy status to other drugs, medicaments and biological substances
CPT/HCPCS: 36415-UA; 71010-TC; 80048-TC; 80053-TC; 81001-TC; 84443-TC; 85025-TC; 86592-TC; 90732; 90779; 90899; 93005; 94664; 94760; J7613; X3920; Z7610